=== PATIENT | male | born 1965 | race Asian ===

== ENCOUNTER 2018-10-09 12:21 | Emergency (ER) | payer OTHER ==
[~2018-10-09] VITALS: Ht 167.6 cm; Wt 80.0 kg
[2018-10-09] MEDS ORDERED: FAMOTIDINE 20MG/2ML VIAL IV ONE (13:15)
[2018-10-09] MEDS ORDERED: METHYLPREDNISOLONE SOD SUCC 125 MG/2 ML VIAL IV ONE (13:15)
[2018-10-09 14:39] VITALS: BP 148/99
== END 2018-10-09 14:51 | disposition home or self-care (01) ==
LOC: ER 12:36
DX: T78.1XXA Other adverse food reactions, not elsewhere classified, initial encounter (principal); J45.909 Unspecified asthma, uncomplicated; I10 Essential (primary) hypertension; Z88.8 Allergy status to other drugs, medicaments and biological substances; Z91.010 Allergy to peanuts; X58.XXXA Exposure to other specified factors, initial encounter
CPT/HCPCS: 96374; 96375; 99283; J2930; J3490